=== PATIENT | male | born 1970 | race Caucasian/White ===

== ENCOUNTER 2017-09-28 11:43 | Emergency (ER) | payer OTHER ==
--- NOTE | 2017-09-28 11:46 | PDOC ---
History of Present Illness - General Stated Complaint: BLOOD PRESSURE PROBLEM Time Seen by Provider: 09/28/17 11:45 - History of Present Illness Initial Comments: 09/28/17 11:47 Mr. Barr is a 47 yo male w/ pmh of hypertension, aortic dissection (2008), aortic aneurism x2, and former cocaine abuse who presents c/o a 1 hour history of "sharp" pain in his chest. He denies it is tearing in nature but says that it feels similar to when his aortic aneurism was leaking in the past. Mr. Barr says that it was sudden in onset and that he had diffuse sweating and nausea associated with it. The patient denies chest pain, shortness of breath, headache and dizziness. Denies fever, chills, nausea, vomit, diarrhea and constipation. Denies dysuria, frequency, urgency and hematuria. Allergies: NKDA Past History - Past Medical History Allergies/Adverse Reactions: Allergies Allergy/AdvReac Type Severity Reaction Status Date / Time fish derived Allergy Swelling Verified 07/07/16 14:42 Home Medications: Ambulatory Orders Carvedilol 50 mg PO BID 03/07/15 Clonidine HCl 0.3 mg PO TID 03/07/15 Famotidine [Pepcid -] 40 mg PO DAILY 03/07/15 Hydralazine HCl 25 mg PO TID 03/07/15 Lisinopril [Prinivil -] 40 mg PO DAILY 03/07/15 Nifedipine [Nifedical Xl] 30 mg PO HS 03/07/15 Oxycodone HCl/Acetaminophen [Percocet 5-325 mg Tablet] 1 tab PO Q6H PRN #12 tablet MDD 4 tabs 07/07/16 Nifedipine [Nifedipine ER] 60 mg PO DAILY 09/28/17 Spironolactone 40 mg PO DAILY 09/28/17 Cardiac Disorders: Yes (AORTIC ANERYSM) HTN: Yes - Immunization History Immunization Up to Date: Yes - Suicide/Smoking/Psychosocial Hx Smoking History: Never smoked Hx Alcohol Use: Yes (SOCIAL) Drug/Substance Use Hx: No Substance Use Type: Marijuana Review of Systems - Review of Systems Comments:: 09/28/17 14:07 GENERAL/CONSTITUTIONAL: +Diaphoresis earlier this AM. No chills. No weakness. HEAD, EYES, EARS, NOSE AND THROAT: No change in vision. No ear pain or discharge. No sore throat. CARDIOVASCULAR: +Sudden Midline non-tearing but sharp chest pain that does not radiate to his back RESPIRATORY: No cough, wheezing, or hemoptysis. GASTROINTESTINAL: +Nausea this morning, No vomiting, diarrhea or constipation. GENITOURINARY: No dysuria, frequency, or change in urination. MUSCULOSKELETAL: No joint or muscle swelling or pain. No neck or back pain. SKIN: No rash NEUROLOGIC: No headache, vertigo, loss of consciousness, or change in strength/ sensation. ENDOCRINE: No increased thirst. No abnormal weight change HEMATOLOGIC/LYMPHATIC: No anemia, easy bleeding, or history of blood clots. ALLERGIC/IMMUNOLOGIC: No hives or skin allergy. *Physical Exam - Physical Exam Comments: 09/28/17 14:09 GENERAL: Awake, alert, and fully oriented, in no acute distress HEAD: No signs of trauma, normocephalic, atraumatic EYES: PERRLA, EOMI, sclera anicteric, conjunctiva clear ENT: Auricles normal inspection, hearing grossly normal, nares patent, oropharynx clear without exudates. Moist mucosa NECK: Normal ROM, supple, no lymphadenopathy, JVD, or masses LUNGS: No distress, speaks full sentences, clear to auscultation bilaterally HEART: Regular rate and rhythm, normal S1 and S2, no murmurs, rubs or gallops, peripheral pulses normal and equal bilaterally. ABDOMEN: Soft, nontender, normoactive bowel sounds. No guarding, no rebound. No masses EXTREMITIES: Normal inspection, Normal range of motion, no edema. No clubbing or cyanosis. NEUROLOGICAL: Cranial nerves II through XII grossly intact. Normal speech, normal gait, no focal sensorimotor deficits SKIN: Warm, Dry, normal turgor, no rashes or lesions noted. ED Treatment Course - LABORATORY CBC & Chemistry Diagram: 09/28/17 12:10 09/28/17 12:10 Medical Decision Making - Medical Decision Making 09/28/17 12:14 With patient history of dissection and previous kidney function testing in April non-concerning levels, will proceed with CTA without lab results back for kidney function. Discussed risks and benefits with patient and patient agrees and will sign off. 09/28/17 14:13 Patient found to have active dissection. Discussed case with Dr. Cohen ( Cardiothoracic Surgery) of [facility]. Accepted transfer - patient en route via EMS. *DC/Admit/Observation/Transfer Diagnosis at time of Disposition: Aortic dissection Qualifiers: Aortic location: thoracic aorta Qualified Code(s): I71.01 - Dissection of thoracic aorta - Discharge Dispostion Disposition: TRANSFER ACUTE CARE/OTHER HOSP - Referrals Referrals: Fabrice Salas MD [Primary Care Provider] - - Patient Instructions - Post Discharge Activity
--- NOTE | 2017-09-28 11:57 | PDOC ---
Attending Attestation - HPI HPI: 09/28/17 12:38 Pt is a 47 yo M with a PMHx of HTN, Aortic dissection (2009), Aortic aneurysm, cocaine use who presents to the ED with chest pain today. Patient reports sudden onset of sharp, mid sternal chest pain, non radiating, with nausea and diaphoresis. Patient states the pain feels similar to the aneurysm he experienced in the past. Patient immediately called 911 and EMS arrived. Patient woke up in his usual state of health this morning until he experienced these symptoms prior to arrival. PCP: Dr. Salas - Physicial Exam PE: 09/28/17 12:38 Vitals: Triage Vital signs reviewed General Appearance: no acute distress, well nourished well developed, Head: Atraumatic, normocephalic Neck: Supple;No Nuchal rigidity Chest Wall: Nontender Cardiac: Regular rate and rhythm, no murmurs, no rubs, no gallops, Lungs: Clear to auscultation bilateral, good air movement bilaterally, Abdomen: Soft, nondistended, normal bowel sounds, nontender to palpation Extremities: Full range of motion to all extremities, no cyanosis, clubbing, or edema Skin: Warm and dry, no rashes or lesions, no petechiae - Medical Decision Making 09/28/17 12:38 Documentation prepared by Anna Beasley, acting as medical reimbursement manager for Lukas Riddle MD, /DO. 09/28/17 13:07--Call placed to [facility] for vascular surgery. 09/28/17 13:22-- Case discussed with Dr. Rocha discussing imaging reports. 09/28/17 13:24 -- Re-evaluated patient's pain. Currently, patient is in no pain. 09/28/17 13:42-- Case accepted by Dr. Cohen Cardiothoracic surgery. 09/28/17 13:44-- Received call from [facility] transfer center for report. 09/28/17 13:48 -- Patient transported out of ED enroute via EMS to [facility]. <Anna Beasley - Last Filed: 09/28/17 13:48> - Resident Resident Name: Isaac Hardwick - ED Attending Attestation I have performed the following: I have examined & evaluated the patient, The case was reviewed & discussed with the resident, I agree w/resident's findings & plan, Exceptions are as noted - Critical Care Time Total Critical Care Time: 65 Critical Care Statement: The care of this patient involved high complexity decision making to prevent further life threatening deterioration of the patient 's condition and/or to evaluate & treat vital organ system(s) failure or risk of failure. - Medical Decision Making 09/28/17 13:20 47 years old past medical history significant for aortic dissection 2009 status post repair presents with chest pain sharp midsternal nausea diaphoresis. CTA ordered CTA demonstrates a aortic dissection starting at the aortic arch involving the right subclavian continuing through the descending aorta At this time patient is hemodynamically stable he is not hypertensive he is experiencing no pain. His previous surgery was performed at the [facility] by . We'll transfer to [facility] for definitive management. We'll intervention needed at this time 09/28/17 14:[address] Cohen cardiothoracic surgery agrees for transfer to [facility] recommends BP control below 150 systolic Repeat blood pressure now 100 systolic IV fluids running no indication for blood pressure control at this time Patient to be transferred to ICU at [facility] under accepting physician Dr. Martínez for definitive management. <Lukas Riddle - Last Filed: 09/28/17 16:55>
[2017-09-28] MEDS ORDERED: SODIUM CHLORIDE 1,000 ML IV STA ×2 (12:00→13:28)
[2017-09-28 12:08] VITALS: BMI 26.8
[2017-09-28 12:35] LABS: BASOPHIL 0.9 % (0-2.0); EOSINOPHIL 1.5 % (0-4.5); MCHC 32.7 g/dl (32.0-35.9); MEAN CELL VOLUME 88.7 fl (80-96); MEAN PLT VOLUME 9.2 fl (7.5-11.1); NEUTROPHILS 64.3 % (42.8-82.8); PLATELET COUNT 251 K/MM3 (134-434); RDW 13.3 % (11.9-15.9); WHITE BLOOD COUNT 7.8 K/mm3 (4.0-10.0)
[2017-09-28 12:37] LABS: CALCIUM 8.6 mg/dL (8.5-10.1)
[2017-09-28 12:40] LABS: ALBUMIN 3.7 g/dl (3.4-5.0); ANION GAP 6 (8-16); CO2 29 mmol/L (21-32); GLUCOSE,RANDOM 101 mg/dL (74-106); SGPT/ALT 31 U/L (12-78)
[2017-09-28 12:42] LABS: BILIRUBIN,TOTAL 0.5 mg/dL (0.2-1.0); CREATININE 0.8 mg/dL (0.7-1.3); SGOT/AST 15 U/L (15-37); TOT PROT 6.2 g/dl (6.4-8.2)
[2017-09-28 12:45] LABS: ALK PHOS 71 U/L (45-117); CPK 105 IU/L (39-308); TROPONIN I < 0.02 ng/ml (0.00-0.05)
[2017-09-28] MEDS ORDERED: LABETALOL HCL 5 MG/1 ML (200MG/40ML VIAL) IVPB ONE ×2 (13:39→13:40)
[2017-09-28 13:45] VITALS: BP 96/61; PULSE 62; TEMP 98.1
--- NOTE | 2017-09-29 08:44 | EKG ---
Test Reason : Blood Pressure : / mmHG Vent. Rate : 056 BPM Atrial Rate : 056 BPM P-R Int : 168 ms QRS Dur : 086 ms QT Int : 456 ms P-R-T Axes : 037 031 034 degrees QTc Int : 440 ms SINUS BRADYCARDIA POSSIBLE LEFT ATRIAL ENLARGEMENT BORDERLINE ECG WHEN COMPARED WITH ECG OF 07-MAR-2015 22:46, NO SIGNIFICANT CHANGE WAS FOUND Confirmed by JULIA ALAS MD ([id number]) on 09/29/2017 8:44:20 AM Referred By: Confirmed By:JULIA ALAS MD
== END 2017-09-28 13:45 | disposition short-term general hospital (02) ==
LOC: JER 11:43
DX: I71.01 Dissection of thoracic aorta (principal); Z86.79 Personal history of other diseases of the circulatory system
CPT/HCPCS: 36415; 71275-TC; 74170-TC; 80053; 82550; 84484; 85025; 93005; 93010; 99283-25

== ENCOUNTER 2019-05-28 19:05 | Emergency (ER) | payer OTHER ==
[2019-05-28 19:11] VITALS: TEMP 97.6; BMI 26.4
[2019-05-28] MEDS ORDERED: morphine CARPU-JECT 4 MG/1 ML DISP.SYRIN IVPUSH ONE ×3 (19:20→21:26)
[2019-05-28] MEDS ORDERED: METOPROLOL TARTRATE 5 MG/5 ML VIAL ONE (19:27)
[2019-05-28] MEDS ORDERED: morphine SULFATE 4 MG/ML VIAL ONE ×3 (19:34→21:31)
--- NOTE | 2019-05-28 19:37 | PDOC ---
Documentation entered by Emeli Joseph SCRIBE, acting as scribe for Aurelio Cantu MD. Aurelio Cantu MD: This documentation has been prepared by the maheshibe, Emeli Joseph SCRIBE, under my direction and personally reviewed by me in its entirety. I confirm that the documentation accurately reflects all work, treatment, procedures, and medical decision making performed by me. Attending Attestation - Resident Resident Name: Jenny Kumar - ED Attending Attestation I have performed the following: I have examined & evaluated the patient, The case was reviewed & discussed with the resident, I agree w/resident's findings & plan, Exceptions are as noted - HPI HPI: 05/28/19 19:26 The patient is a 49-year-old male, with a past medical history of HTN, aortic dissection (2008), aortic aneurysm x2, and former cocaine abuse, who was sent to the ED by his [employer] Specialist (Dr. Bateman) for chest pain r/o aortic dissection. - Physicial Exam PE: 05/28/19 19:26 GENERAL: visible distress, AOx3 HEENT: Normocephalic, atraumatic. PERRL, EOM intact. CARDIOVASCULAR: HR 50s PULMONARY: Clear to auscultation bilaterally. ABDOMEN: Soft, non-distended, non-tender. EXTREMITIES: Normal ROM in all four extremities. No gross deformities. SKIN: Warm, dry. No rash NEUROLOGICAL: No focal neurological deficits. - Medical Decision Making 05/28/19 20:37 Sharp, tearing, central chest pain similar to prior dissection Extremely concerning for dissection analgesia, bp control CTA CAP SBP>200 on initial exam, esmolo drip started goals of HR 50-60, SBP 100-120 Transfer to [facility] initiated, spoke with Dr. Peralta, patient's CT surgeon, who accepted the patient
[2019-05-28] MEDS ORDERED: ESMOLOL 2500 MG/250 ML 2,500,000 MCG/250 ML INFUS.BAG IVPB ONE ×2 (19:52→21:31)
--- NOTE | 2019-05-28 19:52 | PDOC ---
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 5mg Metoprolol given by EMS. Pt states he was sitting playing video games when the pain suddenly started, sharp, substernal then radiated to abdomen, constant but varies in intensity. Pt tried Hydralazine without improvement. Endorses SOB. Denies MARSHALL, dizziness, numbness/ tingling, weakness, back pain, neck pain. LPO 0800. Pt endorses similar sx in the past ever since his surgery in 2008, but states it usually resolves at rest , but this time it just kept getting worse. Past History - Past Medical History Allergies/Adverse Reactions: Allergies Allergy/AdvReac Type Severity Reaction Status Date / Time fish derived Allergy Swelling Verified 05/28/19 19:07 Home Medications: Ambulatory Orders Carvedilol 50 mg PO BID 03/07/15 Clonidine HCl 0.3 mg PO TID 03/07/15 Famotidine [Pepcid -] 40 mg PO DAILY 03/07/15 Hydralazine HCl 25 mg PO TID 03/07/15 Lisinopril [Prinivil -] 40 mg PO DAILY 03/07/15 Nifedipine [Nifedical Xl] 30 mg PO HS 03/07/15 Oxycodone HCl/Acetaminophen [Percocet 5-325 mg Tablet] 1 tab PO Q6H PRN #12 tablet MDD 4 tabs 07/07/16 Nifedipine [Nifedipine ER] 60 mg PO DAILY 09/28/17 Spironolactone 40 mg PO DAILY 09/28/17 Cardiac Disorders: Yes (AORTIC ANERYSM) COPD: No HTN: Yes - Surgical History Cardiac Surgery: Yes (AAA repair) - Immunization History Immunization Up to Date: Yes - Suicide/Smoking/Psychosocial Hx Smoking History: Former smoker Have you smoked in the past 12 months: No Information on smoking cessation initiated: No Hx Alcohol Use: No Drug/Substance Use Hx: Yes Substance Use Type: Marijuana Review of Systems - Review of Systems Comments:: 06/01/19 00:18 Constitutional: Negative for chills, fever, fatigue. HENT: Negative for sore throat, rhinorrhea, congestion. Eyes: Negative for visual disturbance. Respiratory: Positive for shortness of breath. Negative for cough, and wheezing. Cardiovascular: Positive for chest pain. Negative for palpitations, and leg swelling. Gastrointestinal: Positive for abdominal pain. Negative for blood in stool, constipation, diarrhea, nausea, and vomiting. Genitourinary: Negative for dysuria, flank pain, and hematuria. Musculoskeletal: Negative for myalgias, back pain, and neck pain. Skin: Negative for rash. Neurological: Negative for light-headedness, dizziness, syncope, weakness, numbness and headaches. Psychiatric/Behavioral: Negative for behavioral problems and confusion. *Physical Exam - Vital Signs Last Vital Signs Temp Pulse Resp BP Pulse Ox 97.6 F 56 L 22 H 166/96 98 05/28/19 19:07 05/28/19 19:07 05/28/19 19:07 05/28/19 19:07 05/28/19 19:07 - Physical Exam Comments: Gen: Alert, screaming in pain, in acute distress, clutching chest HEENT: PERRL, EOMI, MMM, NCAT. No conjunctival pallor. Sclera are non-icteric. CV: Regular rate and rhythm. No murmurs, rubs, or gallops. PULM: No resp distress. CTAB, no wheezes, rales, or rhonchi. ABD: diffuse TTP, soft, ND, no rebound tenderness or guarding, no CVA tenderness. BACK: No TTP of c/t/l-spine. No step-offs or deformities. MSK: No bony deformities. 2+ pulses in all extremities. NEURO: AAOx3. PERRL. No gross CN deficits. Strength and sensation grossly intact throughout. EXTREMITIES: No cyanosis. No clubbing. No edema. No calf tenderness. PSYCH: Normal mood and thought pattern. SKIN: Warm and dry. Normal capillary refill. No rashes. No jaundice. Heart Score/ECG Review - ECG Impressions Comment:: 05/28/19 20:37 EKG at 1954: 55bpm, sinus bradycardia, TWI V2/V3/III, no significant changes from 09/28/17 ED Treatment Course - LABORATORY CBC & Chemistry Diagram: 05/28/19 19:46 05/28/19 19:46 - RADIOLOGY Radiology Studies Ordered: Category Date Time Status ABDOMEN/PELVIS CTA W/WO CONTR [CT] Stat CT Scan 05/28/19 19:17 Ordered CHEST CTA [CT] Stat CT Scan 05/28/19 19:17 Ordered - Medications Given in the ED: ED Medications Discontinued Medications Generic Name Dose Route Start Last Admin Trade Name Shayla PRN Reason Stop Dose Admin Morphine Sulfate 4 mg 05/28/19 19:20 05/28/19 19:45 Morphine Injection - IVPUSH 05/28/19 19:21 4 mg ONCE ONE Administration Medical Decision Making - Medical Decision Making 05/28/19 20:37 49yo M hx HTN, aortic dissection (2008), aortic aneurysm, preDM, anemia, R inguinal hernia, and former cocaine abuse presents from home 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 5mg Metoprolol given by EMS. BP 240/120, HR 50s and jumps up to 300s every few minutes with loss of pulse but no LOC, in severe pain. Pads placed. Very high concern for dissection - immediate CTA - discussed risks and benefits of getting CTA prior to labs with pt and obtained consent. 4mg morphine given en route to CTA. When returned from CTA, started Esmolol drip for goals of HR 50-60 and SBP 100-120. Reassessed BP and HR every 5 minutes and titrated up to max 200 mcg/kg/min at 2030. 2034: BP 135/99, HR 60s. 2042: 139/85, 50s 2056: 121/83, 60s Dissection of highest concern, but also consider and assess for ACS/NH. Obtained labs: EKG, CBC, CMP, cardiac profile, coags. 8: ordered second 4mg morphine for continued pain 2125: ordered third 4mg morphine for return of pain 05/28/19 20:54 Pt feels better. Sitting up, looks much more comfortable. Denies CP, abdominal pain, dizziness, any complaints. HR 50s-60s, BP 130s/80s. Transfer paperwork filled out. Pending transfer. Dr Cantu spoke with Dr Peralta, pt's CT surgeon, who accepted the pt for transfer to [facility]. EKG at 1954: 55bpm, sinus bradycardia, TWI V2/V3/III, no significant changes from 09/28/17 05/28/19 20:57 Labs reviewed. WBC 11.2. PTT 47.8. CT: In comparison to a 2017 CT exam note is made of apparent interval decreased flow within the false lumen of a chronic aortic dissection which as on the prior study extends from the level of the proximal aortic arch through the infrarenal abdominal aorta. The remainder of the exam demonstrates no definite interval change as discussed above. A 1.7 cm enhancing right hepatic lobe focus is seen posteriorly without gross interval change. Correlation with sonography or contrast-enhanced MRI is suggested.. Right inguinal hernia containing fat and a small portion of the urinary bladder. Small left inguinal hernia containing fat only. 05/28/19 21:40 Chest pain returning. BP 129/82. 4 morphine and another bag of Esmolol for transport team in case. Signed out to transport team. Pt taken. *DC/Admit/Observation/Transfer Diagnosis at time of Disposition: Aortic dissection - Discharge Dispostion Disposition: TRANSFER ACUTE CARE/OTHER HOSP Condition at time of disposition: Improved Decision to Admit order: No - Referrals Referrals: Fabrice Salas MD [Primary Care Provider] - - Patient Instructions - Post Discharge Activity - Transfer to Acute Care Facility Receiving Facility: [facility]. Accepting Physician:: Dr. Cohen
[2019-05-28] MEDS: ESMOLOL 2500 MG/250 ML 2,500,000 MCG/250 ML INFUS.BAG IVPB SCH ×3 (20:00→20:10)
[2019-05-28] MEDS ORDERED: ESMOLOL 2500 MG/250 ML 2,500,000 MCG/250 ML INFUS.BAG IVPB SCH ×2 (20:00→21:30)
[2019-05-28 20:03] LABS: BASO % 0.8 % (0-2.0); EOS % 0.5 % (0-4.5); HEMATOCRIT 44.5 % (35.4-49); HEMOGLOBIN 14.8 GM/dL (11.7-16.9); LYMPH % 34.4 % (8-40); MCH 29.1 pg (25.7-33.7); MCHC 33.2 g/dl (32.0-35.9); MEAN CELL VOLUME 87.5 fl (80-96); MEAN PLT VOLUME 8.6 fl (7.5-11.1); MONO % 7.8 % (3.8-10.2); NEUT % 56.5 % (42.8-82.8); PLATELET COUNT 296 K/MM3 (134-434); RBC 5.08 M/mm3 (4.00-5.60); RDW 14.9 % (11.9-15.9); WHITE BLOOD COUNT 11.2 K/mm3 (4.0-10.0)
[2019-05-28 20:28] LABS: INR 0.92 (0.83-1.09); PROTHROMBIN TIME (PATIENT) 10.9 SEC (9.7-13.0)
[2019-05-28 21:31] LABS: ALBUMIN 3.9 g/dl (3.4-5.0); ALK PHOS 84 U/L (45-117); ANION GAP 7 MMOL/L (8-16); BILIRUBIN,TOTAL 0.3 mg/dL (0.2-1); BLOOD UREA NITROGEN 9.3 mg/dL (7-18); CALCIUM 9.3 mg/dL (8.5-10.1); CHLORIDE 104 mmol/L (98-107); CO2 28 mmol/L (21-32); CREATININE 0.9 mg/dL (0.55-1.3); GLUCOSE,RANDOM 96 mg/dL (74-106); POTASSIUM 4.2 mmol/L (3.5-5.1); SGOT/AST 25 U/L (15-37); SGPT/ALT 40 U/L (13-61); SODIUM 139 mmol/L (136-145); TOT PROT 6.6 g/dl (6.4-8.2)
[2019-05-28 21:51] VITALS: BP 129/84; PULSE 56
--- NOTE | 2019-05-29 14:15 | EKG ---
Test Reason : Blood Pressure : / mmHG Vent. Rate : 055 BPM Atrial Rate : 055 BPM P-R Int : 160 ms QRS Dur : 076 ms QT Int : 450 ms P-R-T Axes : 044 033 035 degrees QTc Int : 430 ms SINUS BRADYCARDIA POSSIBLE LEFT ATRIAL ENLARGEMENT NONSPECIFIC T WAVE ABNORMALITY ABNORMAL ECG WHEN COMPARED WITH ECG OF 28-SEP-2017 11:56, NO SIGNIFICANT CHANGE WAS FOUND Confirmed by REHAN GALEAS MD ([id number]) on 05/29/2019 2:14:56 PM Referred By: Confirmed By:REHAN GALEAS MD
== END 2019-05-28 21:53 | disposition short-term general hospital (02) ==
LOC: JER 19:05
PROC: 3E033NZ Introduction of Analgesics, Hypnotics, Sedatives into Peripheral Vein, Percutaneous Approach (ICD-10-PCS; principal; 2019-05-28)
PROC: 3E033GC Introduction of Other Therapeutic Substance into Peripheral Vein, Percutaneous Approach (ICD-10-PCS; 2019-05-28)
PROC: 3E033NZ Introduction of Analgesics, Hypnotics, Sedatives into Peripheral Vein, Percutaneous Approach (ICD-10-PCS; 2019-05-28)
PROC: 3E033NZ Introduction of Analgesics, Hypnotics, Sedatives into Peripheral Vein, Percutaneous Approach (ICD-10-PCS; 2019-05-28)
DX: I71.00 Dissection of unspecified site of aorta (principal); Z86.79 Personal history of other diseases of the circulatory system
CPT/HCPCS: 36415; 71275-TC; 74174-TC; 80053; 82550; 84484; 85025; 85610; 85730; 86850; 86900; 86901; 93005; 93010; 99285-25

== ENCOUNTER 2019-10-09 16:31 | Inpatient (IN) | payer OTHER ==
[2019-10-09 19:20] VITALS: BMI 27.5
--- NOTE | 2019-10-09 21:24 | HP ---
COWS - Scale Resting Pulse: 1= [place] 81-100 Sweatin=Flushed/Facial Moisture Restless Observation: 3= Extraneous Movement Pupil Size: 2= Moderately Dilated (Pupils = 3 mm) Bone or Joint Aches: 1= Mild Discomfort Runny Nose/ Eye Tearin= None GI Upset > 30mins: 0= None Tremor Observation: 2= Slight Tremor Visible Yawning Observation: 1= 1-2x During Session Anxiety or Irritability: 2=Irritable/Anxious Goose Flesh Skin: 0=Smooth Skin COWS Score: 14 CIWA Score - Admission Criteria OASAS Guidelines: Admission for Medically Managed Detox: Requires at least one of the followin. CIWA greater than 12 2. Seizures within the past 24 hours 3. Delirium tremens within the past 24 hours 4. Hallucinations within the past 24 hours 5. Acute intervention needed for co occurring medical disorder 6. Acute intervention needed for co occurring psychiatric disorder 7. Severe withdrawal that cannot be handled at a lower level of care (continued vomiting, continued diarrhea, abnormal vital signs) requiring intravenous medication and/or fluids 8. Admitting History and Physical - Smoking History Smoking history: Former smoker Have you smoked in the past 12 months: No - Alcohol/Substance Use Hx Alcohol Use: No Admission ROS BHS - HPI Chief Complaint: "Here to detox from percocets and weed" Allergies/Adverse Reactions: Allergies Allergy/AdvReac Type Severity Reaction Status Date / Time fish derived Allergy Swelling Verified 10/09/19 19:09 History of Present Illness: States here for percocet detox. Last took percocet about 1400 hrs today. JENNIFER: 0.0 UTox: + THC/OXY Percocet use since age 42. [facility] has been taking more than prescribed x 5 years. States now taking 10-10 mg tables daily. Patient states orthopedic provider is the one ordering oxycodone and provider is aware of patient seeking detox. Patient states Provider will find alternative ways to control pain. Denies hx seizures, blackouts or overdoses. Marijuana use since age 13. Smokes 3-4 blunts/day. Hx: Cocaine use. - stopped in 2008 after first heart attack. Stopped alcohol use 3-4 yrs ago. Stopped nicotine use. PMHx: Myocardial infarct; aortic aneurism repair; Last heart attack 06/2019; Thinks that w/drawal triggered the heart attack; spinal stenosis, HTN; MHHx: Depression. Anxiety. Not on MH meds. Does not see a Psych. Denies thoughts of harming self or others. SHx: Domiciled. Unemployed. (SSD); Denies legal issues. Patient Name: Vivek Barr Date: 1970 Address: [address] [place] [address] [place] [address] Sex: Male Rx Written Rx Dispensed Drug Quantity Days Supply Prescriber Name 09/25/2019 09/25/2019 oxycodone-acetaminophen 5-325 mg tablet 20 20 DoSruthi meyers NP 08/05/2019 08/05/2019 oxycodone-acetaminophen 5-325 mg tablet 20 20 DebieAugustine mota MD 07/03/2019 07/03/2019 oxycodone-acetaminophen 5-325 mg tablet 20 20 DoblSruthi leonard NP 06/04/2019 06/05/2019 oxycodone-acetaminophen 5-325 mg tablet 24 6 iY Solitario 04/22/2019 04/22/2019 oxycodone-acetaminophen 5-325 mg tablet 20 20 DebiecAugustine MD 03/06/2019 03/07/2019 oxycodone-acetaminophen 5-325 mg tablet 20 20 DebiecAugustine MD 01/30/2019 01/30/2019 oxycodone-acetaminophen 5-325 mg tablet 20 30 DebiecAugustine MD 12/12/2018 12/29/2018 oxycodone-acetaminophen 5-325 mg tablet 20 20 DebAugustine winslow MD 11/28/2018 11/29/2018 oxycodone-acetaminophen 5-325 mg tablet 20 20 DoblinSruthi NP 10/24/2018 10/24/2018 oxycodone-acetaminophen 5-325 mg tablet 20 20 DebAugustine winslow MD Exam Limitations: No Limitations - Ebola screening Have you traveled outside of the country in the last 21 days: No (N) Have you had contact with anyone from an Ebola affected area: No Have you been sick,other than usual withdrawal symptoms: Yes (Extensive cardiac hx. ) Do you have a fever: No - Review of Systems Constitutional: Chills, Diaphoresis, Changes in sleep (Difficulty staying asleep.) EENT: reports: Blurred Vision Respiratory: reports: SOB with Exertion, SOB at Rest (Intermittent SOB @ rest. Thinks may be r/t withdrawal.) Cardiac: reports: Irregular Heart Rate, Palpitations, Syncope (r/t heat; straining) GI: reports: No Symptoms Reported : reports: Frequency (2-4 x/night) Musculoskeletal: reports: Back Pain (Lower back sharp pain "6" : Pain increases w/ sitting/standing too long. Improves w/ laying down or sitting) Integumentary: reports: No Symptoms Reported Neuro: reports: Tremors Endocrine: reports: Increased Thirst Hematology: reports: Anemia (Low iron) Psychiatric: reports: Orientated x3 (Unsure of ecxact date.), Agitated, Anxious , Depressed (Denies thoughts of harming self or others.) Patient History - Patient Medical History Hx Chronic Obstructive Pulmonary Disease (COPD): No Hx Cardiac Disorders: Yes (AORTIC ANERYSM) Hx Hypertension: Yes - Patient Surgical History Hx Cardiac Surgery: Yes (AAA repair) - PPD History Previous Implant?: Yes Documented Results: Negative w/o proof Implanted On Prior [facility] Admission?: No PPD to be Administered?: Yes - Smoking Cessation Smoking history: Former smoker Have you smoked in the past 12 months: No Hx Chewing Tobacco Use: No Initiated information on smoking cessation: No - Substance & Tx. History Hx Alcohol Use: Yes Hx Substance Use: Yes Substance Use Type: Alcohol, Cocaine, Marijuana Hx Substance Use Treatment: Yes (detox, rehab) - Substances abused Other Other (specify): Substance route: Oral Frequency: Daily Amount used: 10-12 TABS Age of first use: 42 Date of last use: 10/09/19 Marijuana/Hashish Substance route: Smoking Frequency: Daily Amount used: $25 Age of first use: 13 Date of last use: 10/09/19 Admission Physical Exam BHS - Vital Signs Vital Signs: Vital Signs - 24 hr 10/09/19 19:08 Temperature 98.4 F Pulse Rate 83 Respiratory 16 Rate Blood Pressure 116/71 - Physical General Appearance: Yes: Nourished, Mild Distress, Tremorous, Sweating ( Increased facial moisture), Anxious HEENTM: Yes: EOMI, Hearing grossly Normal, Normocephalic, Normal Voice, LIANA ( Pupils = 3 mm), Other (Tonsilar enlargement - stage 2: no erythema or exudate) Respiratory: Yes: Lungs Clear (Pulse Ox = 98 %), Normal Breath Sounds, No Respiratory Distress Neck: Yes: No masses,lesions,Nodules, Supple Breast: Yes: Breast Exam Deferred Cardiology: Yes: Regular Rhythm, Regular Rate (92), S1, S2, Murmur Abdominal: Yes: Normal Bowel Sounds, Non Tender, Soft Genitourinary: Yes: Within Normal Limits Back: Yes: Normal Inspection Musculoskeletal: Yes: full range of Motion, Gait Steady Extremities: Yes: Normal Capillary Refill (Peripheral pulses +; No edema) Neurological: Yes: 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 II-XII NML intact, Fully Oriented, Alert, Motor Strength 5/5, Normal Response Integumentary: Yes: Normal Color, Warm, Moist (Increased facial moisture), Other (dry, flaky skin on feet, thickened) Lymphatic: Yes: Within Normal Limits - Diagnostic (1) Opioid dependence with withdrawal Current Visit: Yes Status: Acute (2) Hx of myocardial infarction Current Visit: Yes Status: Chronic (3) Hx of aortic aneurysm repair Current Visit: Yes Status: Chronic (4) Cannabis dependence, uncomplicated Current Visit: Yes Status: Chronic (5) Essential (primary) hypertension Current Visit: Yes Status: Chronic (6) Tinea pedis Current Visit: Yes Status: Chronic Qualifiers: Laterality: bilateral Qualified Code(s): B35.3 - Tinea pedis (7) Murmur, cardiac Current Visit: Yes Status: Chronic Cleared for Admission S - Detox or Rehab [facility] Level of Care: Medically Managed Detox Regimen/Protocol: Methadone Claeared for Rehab Admission: No Breathalyzer - Breathalyzer Breathalyzer: 0 Urine Drug Screen - Test Device Lot number: [id number] Expiration date: 05/26/21 - Control Is test valid?: Yes - Results Drug screen NEGATIVE: No Urine drug screen results: THC-Marijuana, OXY-Oxycodone Inpatient Rehab Admission - Rehab Decision to Admit Inpatient rehab admission?: No
[2019-10-09] MEDS ORDERED: CARVEDILOL 25 MG TABLET (FP) PO SCH (22:00)
[2019-10-09] MEDS ORDERED: MENTHOL/PHENOL 1 EACH UD MM PRN (22:08)
[2019-10-09] MEDS ORDERED: METHADONE HCL 10 MG TABLET (FOR DETOX USE ONLY) PO ONE (22:08)
[2019-10-09] MEDS ORDERED: ACETAMINOPHEN 325 MG TABLET (FP) PO PRN ×2 (22:08)
[2019-10-09] MEDS ORDERED: IBUPROFEN 600 MG TABLET (FP) PO PRN (22:08)
[2019-10-09] MEDS ORDERED: BISMUTH SUBSALICYLATE 524 MG/30 ML UD PO PRN (22:08)
[2019-10-09] MEDS ORDERED: MAG HYDROX/AL HYDROX/SIMETH 30 ML UNIT-DOSE CUP PO PRN (22:08)
[2019-10-09] MEDS ORDERED: MELATONIN 5 MG TABLETS PO PRN (22:08)
[2019-10-09] MEDS ORDERED: MAGNESIUM CITRATE 300 ML BOTTLE PO PRN (22:08)
[2019-10-09] MEDS ORDERED: MAGNESIUM HYDROX 2400MG/30ML ORAL SUSPENSION 30 ML CUP PO PRN (22:08)
[2019-10-09] MEDS: FAMOTIDINE 20 MG TABLET PO SCH (23:41)
[2019-10-09] MEDS: NIFEdipine E.R. 30 MG TABLET (FP) PO SCH (23:41)
[2019-10-09] MEDS: hydrALAZINE HCL 50 MG TABLET (FP) PO SCH (23:56)
[2019-10-09] MEDS: CARVEDILOL 12.5 MG TABLET (FP) PO SCH (23:56)
[2019-10-10] MEDS: clonazePAM 0.5 MG TABLET PO PRN ×4 (01:14→22:38)
[2019-10-10] MEDS: hydrALAZINE HCL 50 MG TABLET (FP) PO SCH ×3 (07:21→22:35)
[2019-10-10] MEDS ORDERED: METHADONE HCL 10 MG TABLET (FOR DETOX USE ONLY) ONE (09:50)
[2019-10-10] MEDS ORDERED: METHADONE HCL 5 MG TABLET (FOR DETOX USE ONLY) ONE (09:50)
[2019-10-10] MEDS: FAMOTIDINE 20 MG TABLET PO SCH ×2 (09:51→22:34)
[2019-10-10] MEDS: CARVEDILOL 12.5 MG TABLET (FP) PO SCH (09:51)
[2019-10-10] MEDS: METHOCARBAMOL 500 MG TABLET PO PRN ×2 (09:51→17:59)
[2019-10-10] MEDS: PRENATAL VITAMINS W/ FOLIC ACID TABLET (FP) PO SCH (09:51)
[2019-10-10] MEDS: TOLNAFTATE 1% CREAM 15 GM TUBE TP SCH ×2 (09:53→22:37)
[2019-10-10] MEDS ORDERED: METHADONE (DETOX) 20 MG, METHADONE (DETOX) 5 MG PO ONE (10:00)
--- NOTE | 2019-10-10 10:23 | EKG ---
Test Reason : Blood Pressure : / mmHG Vent. Rate : 076 BPM Atrial Rate : 076 BPM P-R Int : 154 ms QRS Dur : 086 ms QT Int : 398 ms P-R-T Axes : 035 020 059 degrees QTc Int : 447 ms NORMAL SINUS RHYTHM POSSIBLE LEFT ATRIAL ENLARGEMENT BORDERLINE ECG WHEN COMPARED WITH ECG OF 28-MAY-2019 19:08, T WAVE INVERSION NO LONGER EVIDENT IN ANTERIOR LEADS NONSPECIFIC T WAVE ABNORMALITY NOW EVIDENT IN LATERAL LEADS Confirmed by LENIN STERN, CECILIO ([id number]) on 10/10/2019 10:22:47 AM Referred By: Confirmed By:CECILIO PHELPS MD
[2019-10-10 10:36] LABS: HEMATOCRIT 37.1 % (35.4-49); HEMOGLOBIN 12.2 GM/dL (11.7-16.9); MCH 29.1 pg (25.7-33.7); MEAN CELL VOLUME 88.1 fl (80-96); MEAN PLT VOLUME 8.9 fl (7.5-11.1); PLATELET COUNT 293 K/MM3 (134-434); RBC 4.21 M/mm3 (4.00-5.60); RDW 14.1 % (11.9-15.9); WHITE BLOOD COUNT 12.7 K/mm3 (4.0-10.0)
[2019-10-10 10:40] LABS: ALBUMIN 4.1 g/dl (3.4-5.0); BILIRUBIN,TOTAL 0.7 mg/dL (0.2-1); BLOOD UREA NITROGEN 19.6 mg/dL (7-18); CALCIUM 9.1 mg/dL (8.5-10.1); CREATININE 0.7 mg/dL (0.55-1.3); POTASSIUM 3.9 mmol/L (3.5-5.1); TOT PROT 6.6 g/dl (6.4-8.2)
--- NOTE | 2019-10-10 12:06 | PN ---
BHS COWS - Scale Resting Pulse: 1= [place] 81-100 Sweatin= Beads of Sweat on Face Restless Observation: 1= Difficult to Sit Still Pupil Size: 0= Normal to Room Light Bone or Joint Aches: 2= Severe Diffuse Aches Runny Nose/ Eye Tearin= None GI Upset > 30mins: 0= None Tremor Observation of Outstretched Hands: 0= None Yawning Observation: 1= 1-2x During Session Anxiety or Irritability: 2=Irritable/Anxious Goose Flesh Skin: 0=Smooth Skin COWS Score: 10 BHS Progress Note (SOAP) Subjective: c/o muscle aches, sweats, chills, and anxiety. Objective: 10/10/19 12:06 Vital Signs 10/10/19 10/10/19 06:09 09:14 Temperature 97.9 F 98.6 F Pulse Rate 80 81 Respiratory 18 18 Rate Blood Pressure 108/57 L 139/79 Laboratory Last Values WBC 12.7 K/mm3 (4.0-10.0) H 10/10/19 08:10 RBC 4.21 M/mm3 (4.00-5.60) 10/10/19 08:10 Hgb 12.2 GM/dL (11.7-16.9) 10/10/19 08:10 Hct 37.1 % (35.4-49) D 10/10/19 08:10 MCV 88.1 fl (80-96) 10/10/19 08:10 MCH 29.1 pg (25.7-33.7) 10/10/19 08:10 MCHC 33.0 g/dl (32.0-35.9) 10/10/19 08:10 RDW 14.1 % (11.9-15.9) 10/10/19 08:10 Plt Count 293 K/MM3 (134-434) 10/10/19 08:10 MPV 8.9 fl (7.5-11.1) 10/10/19 08:10 Sodium 138 mmol/L (136-145) 10/10/19 08:10 Potassium 3.9 mmol/L (3.5-5.1) 10/10/19 08:10 Chloride 105 mmol/L (98-107) 10/10/19 08:10 Carbon Dioxide 26 mmol/L (21-32) 10/10/19 08:10 Anion Gap 8 MMOL/L (8-16) 10/10/19 08:10 BUN 19.6 mg/dL (7-18) H 10/10/19 08:10 Creatinine 0.7 mg/dL (0.55-1.3) 10/10/19 08:10 Est GFR (CKD-EPI)AfAm 130.25 10/10/19 08:10 Est GFR (CKD-EPI)NonAf 112.38 10/10/19 08:10 Random Glucose 106 mg/dL (74-106) 10/10/19 08:10 Calcium 9.1 mg/dL (8.5-10.1) 10/10/19 08:10 Total Bilirubin 0.7 mg/dL (0.2-1) 10/10/19 08:10 AST 13 U/L (15-37) L 10/10/19 08:10 ALT 29 U/L (13-61) 10/10/19 08:10 Alkaline Phosphatase 67 U/L (45-117) 10/10/19 08:10 Total Protein 6.6 g/dl (6.4-8.2) 10/10/19 08:10 Albumin 4.1 g/dl (3.4-5.0) 10/10/19 08:10 Labs noted. Assessment: 10/10/19 12:06 AOX3, in no acute respiratory distress. Full ROM, ambulating in the unit. Withdrawal symptoms. Plan: continue detox.
[2019-10-10] MEDS: cloNIDine HCL 0.1 MG TABLET PO SCH ×2 (14:26→22:35)
[2019-10-10] MEDS: LISINOPRIL PO SCH (14:27)
[2019-10-10] MEDS: NIFEDIPINE PO SCH (14:27)
[2019-10-10] MEDS: SPIRONOLACTONE 25 MG TABLET (FP) PO SCH (14:27)
--- NOTE | 2019-10-10 16:52 | CONSULT ---
[facility] Psychiatric Consult - Data Date of interview: 10/10/19 Admission source: [facility] Identifying data: First admission to [facility] for this 49 y/o male self-referred for detoxification. ADRY issues : opiates, cannabis, cocaine. Interviewed at [address] [place] [address]. Patient is single, a father of five, domiciled, unemployed and supported on SSI benefits. Substance Abuse History: Discussed with the patient. Details in current [facility] report as follows : Smoking history: Former smoker. Have you smoked in the past 12 months: No. Hx Chewing Tobacco Use: No. Initiated information on smoking cessation: No. - Substance & Tx. History. Hx Alcohol Use: Yes. Hx Substance Use: Yes. Substance Use Type: Alcohol, Cocaine, Marijuana. Hx Substance Use Treatment: Yes (detox, rehab). - Substances abused. Other. Other (specify): . Substance route: Oral. Frequency: Daily. Amount used : 10-12 TABS. Age of first use: 42. Date of last use: 10/09/19. Marijuana/ Hashish. Substance route: Smoking. Frequency: Daily. Amount used: $25. Age of first use: 13. Date of last use: 10/09/19 Medical History: Medical profile is remarkable for hypertension, hyperthyroidism , antecedent of cardiovascular surgery (aneurysm of ascending aorta) and spinal stenosis. Psychiatric History: Patient denies history of psychiatric hospitalizations or OPD care. Mr Barr indicates a history of severe stressors ( of one son to homicide last year, estrangement from relatives, serious medical illnesses, incarcerations, financial difficulties) which had generated anxiety and mood dysregulation. 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 Patient denies history of suicide attempts. Physical/Sexual Abuse/Trauma History: Stressors are discussed in Psychiatric History section (see above). Additional Comment: Urine drug screen results: THC-Marijuana, OXY-Oxycodone. Noted. Mental Status Exam - Mental Status Exam Alert and Oriented to: Time, Place, Person Cognitive Function: Good Patient Appearance: Disheveled (tattoos on both shoulders, arms, forearms, chest ) Mood: Withdrawn, Anxious (dysphoric) Affect: Mood Congruent, Constricted Patient Behavior: Inappropriate (as evidenced by ambulating on the unit wearing a tank top T-shirt), Fatigued, Cooperative Speech Pattern: Clear, Appropriate Voice Loudness: Normal Thought Process: Intact, Goal Oriented Thought Disorder: Not Present Hallucinations: Denies Suicidal Ideation: Denies Homicidal Ideation: Denies Insight/Judgement: Poor Sleep: Well Appetite: Good Muscle strength/Tone: Normal (no complaint offered) Gait/Station: Normal Psychiatric Findings - Problem List ([place] 1, 2,3) (1) Opioid dependence with withdrawal Current Visit: Yes Status: Acute (2) Cannabis dependence, uncomplicated Current Visit: Yes Status: Chronic (3) Substance induced mood disorder Current Visit: Yes Status: Chronic (4) History of depression Current Visit: Yes Status: Chronic Comment: As per self-report. - Initial Treatment Plan Initial Treatment Plan: Psychoeducation. Sleep hygiene. Detoxification. NA meetings. MAT services are discussed with the patient. Rehabilitation recommended (patient agrees to enter rehab after completion of detox). Observation.
--- NOTE | 2019-10-10 20:53 | PN ---
BHS Progress Note Note: Patient c/o poor appetite and unable to eat most meals being served. Requesting Ensure. BMI = 27.5, but patient is more muscular. Denies nausea or vomiting. Plan: Ensure 120 ml PO Daily.
[2019-10-10] MEDS: THIAMINE HCL 100 MG TABLET (FP) PO SCH (22:34)
[2019-10-10] MEDS: NIFEdipine E.R. 30 MG TABLET (FP) PO SCH (22:34)
[2019-10-10] MEDS: CARVEDILOL 25 MG TABLET (FP) PO SCH (22:35)
[2019-10-11] MEDS: hydrALAZINE HCL 50 MG TABLET (FP) PO SCH ×3 (06:02→22:34)
[2019-10-11] MEDS: cloNIDine HCL 0.1 MG TABLET PO SCH ×3 (06:04→22:35)
[2019-10-11] MEDS: clonazePAM 0.5 MG TABLET PO PRN ×4 (08:24→22:33)
[2019-10-11] MEDS ORDERED: METHADONE HCL 10 MG TABLET (FOR DETOX USE ONLY) PO ONE (10:00)
[2019-10-11] MEDS: PRENATAL VITAMINS W/ FOLIC ACID TABLET (FP) PO SCH (10:27)
[2019-10-11] MEDS: METHOCARBAMOL 500 MG TABLET PO PRN (10:27)
[2019-10-11] MEDS: CARVEDILOL 25 MG TABLET (FP) PO SCH ×2 (10:27→22:34)
[2019-10-11] MEDS: LISINOPRIL PO SCH (10:28)
[2019-10-11] MEDS: NIFEDIPINE PO SCH (10:31)
[2019-10-11] MEDS: SPIRONOLACTONE 25 MG TABLET (FP) PO SCH (10:31)
[2019-10-11] MEDS: TOLNAFTATE 1% CREAM 15 GM TUBE TP SCH ×2 (10:31→23:00)
--- NOTE | 2019-10-11 10:33 | PN ---
BHS COWS - Scale Resting Pulse: 1= [place] 81-100 Sweatin= Chills/Flushing Restless Observation: 0= Sits Still Pupil Size: 1= Pupils >than Normal Bone or Joint Aches: 1= Mild Discomfort Runny Nose/ Eye Tearin= Nasal Congestion GI Upset > 30mins: 1= Stomach Cramp Tremor Observation of Outstretched Hands: 1= Tremor [place], Not Seen Yawning Observation: 1= 1-2x During Session Anxiety or Irritability: 1=Feels Anxious/Irritable Goose Flesh Skin: 0=Smooth Skin COWS Score: 9 BHS Progress Note (SOAP) Subjective: 49 years old male admitted on 10/09/19 for opiate withdrawal sx management treating with methadone detox regimen resting on bed comfortably prefers to stay in bed today limited conversation with staff Objective: 10/11/19 10:33 Vital Signs Temperature 98.4 F 10/11/19 09:17 Pulse Rate 83 10/11/19 09:17 Respiratory Rate 18 10/11/19 09:17 Blood Pressure 123/70 10/11/19 09:17 O2 Sat by Pulse Oximetry (%) Laboratory Last Values WBC 12.7 K/mm3 (4.0-10.0) H 10/10/19 08:10 RBC 4.21 M/mm3 (4.00-5.60) 10/10/19 08:10 Hgb 12.2 GM/dL (11.7-16.9) 10/10/19 08:10 Hct 37.1 % (35.4-49) D 10/10/19 08:10 MCV 88.1 fl (80-96) 10/10/19 08:10 MCH 29.1 pg (25.7-33.7) 10/10/19 08:10 MCHC 33.0 g/dl (32.0-35.9) 10/10/19 08:10 RDW 14.1 % (11.9-15.9) 10/10/19 08:10 Plt Count 293 K/MM3 (134-434) 10/10/19 08:10 MPV 8.9 fl (7.5-11.1) 10/10/19 08:10 Sodium 138 mmol/L (136-145) 10/10/19 08:10 Potassium 3.9 mmol/L (3.5-5.1) 10/10/19 08:10 Chloride 105 mmol/L (98-107) 10/10/19 08:10 Carbon Dioxide 26 mmol/L (21-32) 10/10/19 08:10 Anion Gap 8 MMOL/L (8-16) 10/10/19 08:10 BUN 19.6 mg/dL (7-18) H 10/10/19 08:10 Creatinine 0.7 mg/dL (0.55-1.3) 10/10/19 08:10 Est GFR (CKD-EPI)AfAm 130.25 10/10/19 08:10 Est GFR (CKD-EPI)NonAf 112.38 10/10/19 08:10 Random Glucose 106 mg/dL (74-106) 10/10/19 08:10 Calcium 9.1 mg/dL (8.5-10.1) 10/10/19 08:10 Total Bilirubin 0.7 mg/dL (0.2-1) 10/10/19 08:10 AST 13 U/L (15-37) L 10/10/19 08:10 ALT 29 U/L (13-61) 10/10/19 08:10 Alkaline Phosphatase 67 U/L (45-117) 10/10/19 08:10 Total Protein 6.6 g/dl (6.4-8.2) 10/10/19 08:10 Albumin 4.1 g/dl (3.4-5.0) 10/10/19 08:10 RPR Titer Nonreactive (NONREACTIVE) 10/10/19 08:10 HIV 1&2 Antibody Screen Negative 10/10/19 08:10 HIV P24 Antigen Negative 10/10/19 08:10 lab noted Assessment: 10/11/19 10:33 opiate withdrawal Plan: methadone regimen
[2019-10-11] MEDS: FAMOTIDINE 20 MG TABLET PO SCH ×2 (10:45→22:33)
[2019-10-11] MEDS: NIFEdipine E.R. 30 MG TABLET (FP) PO SCH (22:33)
[2019-10-11] MEDS: THIAMINE HCL 100 MG TABLET (FP) PO SCH (22:34)
[2019-10-12] MEDS: cloNIDine HCL 0.1 MG TABLET PO SCH ×4 (06:40→22:10)
[2019-10-12] MEDS: hydrALAZINE HCL 50 MG TABLET (FP) PO SCH ×3 (06:40→22:11)
[2019-10-12] MEDS: clonazePAM 0.5 MG TABLET PO PRN ×3 (06:42→22:11)
[2019-10-12] MEDS ORDERED: METHADONE HCL 5 MG TABLET (FOR DETOX USE ONLY) ONE (09:23)
[2019-10-12] MEDS ORDERED: METHADONE HCL 10 MG TABLET (FOR DETOX USE ONLY) ONE (09:23)
[2019-10-12] MEDS ORDERED: METHADONE (DETOX) 10 MG, METHADONE (DETOX) 5 MG PO ONE (10:00)
[2019-10-12] MEDS: PRENATAL VITAMINS W/ FOLIC ACID TABLET (FP) PO SCH (10:15)
[2019-10-12] MEDS: NIFEDIPINE PO SCH (10:15)
[2019-10-12] MEDS: SPIRONOLACTONE 25 MG TABLET (FP) PO SCH (10:15)
[2019-10-12] MEDS: METHOCARBAMOL 500 MG TABLET PO PRN (10:15)
[2019-10-12] MEDS: LISINOPRIL PO SCH (10:15)
[2019-10-12] MEDS: FAMOTIDINE 20 MG TABLET PO SCH ×2 (10:15→22:11)
[2019-10-12] MEDS: CARVEDILOL 25 MG TABLET (FP) PO SCH ×2 (10:15→22:12)
[2019-10-12] MEDS: TOLNAFTATE 1% CREAM 15 GM TUBE TP SCH ×2 (10:16→22:12)
--- NOTE | 2019-10-12 10:52 | PN ---
BHS COWS - Scale Resting Pulse: 1= [place] 81-100 Sweatin= Chills/Flushing Restless Observation: 0= Sits Still Pupil Size: 0= Normal to Room Light Bone or Joint Aches: 1= Mild Discomfort Runny Nose/ Eye Tearin= Nasal Congestion GI Upset > 30mins: 0= None Tremor Observation of Outstretched Hands: 1= Tremor [place], Not Seen Yawning Observation: 0= None Anxiety or Irritability: 1=Feels Anxious/Irritable Goose Flesh Skin: 0=Smooth Skin COWS Score: 6 BHS Progress Note (SOAP) Subjective: 49 years old male admitted on 10/09/19 for opiate withdrawal sx management treating with methadone detox regimen slept through the night ambulating on hallway social with peers in day room discuss the benefit of medication assisted treatment program and 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 pharmacy Objective: 10/12/19 10:54 Vital Signs Temperature 96.8 F L 10/12/19 09:18 Pulse Rate 81 10/12/19 09:18 Respiratory Rate 18 10/12/19 09:18 Blood Pressure 97/61 10/12/19 09:18 O2 Sat by Pulse Oximetry (%) Laboratory Last Values WBC 12.7 K/mm3 (4.0-10.0) H 10/10/19 08:10 RBC 4.21 M/mm3 (4.00-5.60) 10/10/19 08:10 Hgb 12.2 GM/dL (11.7-16.9) 10/10/19 08:10 Hct 37.1 % (35.4-49) D 10/10/19 08:10 MCV 88.1 fl (80-96) 10/10/19 08:10 MCH 29.1 pg (25.7-33.7) 10/10/19 08:10 MCHC 33.0 g/dl (32.0-35.9) 10/10/19 08:10 RDW 14.1 % (11.9-15.9) 10/10/19 08:10 Plt Count 293 K/MM3 (134-434) 10/10/19 08:10 MPV 8.9 fl (7.5-11.1) 10/10/19 08:10 Sodium 138 mmol/L (136-145) 10/10/19 08:10 Potassium 3.9 mmol/L (3.5-5.1) 10/10/19 08:10 Chloride 105 mmol/L (98-107) 10/10/19 08:10 Carbon Dioxide 26 mmol/L (21-32) 10/10/19 08:10 Anion Gap 8 MMOL/L (8-16) 10/10/19 08:10 BUN 19.6 mg/dL (7-18) H 10/10/19 08:10 Creatinine 0.7 mg/dL (0.55-1.3) 10/10/19 08:10 Est GFR (CKD-EPI)AfAm 130.25 10/10/19 08:10 Est GFR (CKD-EPI)NonAf 112.38 10/10/19 08:10 Random Glucose 106 mg/dL (74-106) 10/10/19 08:10 Calcium 9.1 mg/dL (8.5-10.1) 10/10/19 08:10 Total Bilirubin 0.7 mg/dL (0.2-1) 10/10/19 08:10 AST 13 U/L (15-37) L 10/10/19 08:10 ALT 29 U/L (13-61) 10/10/19 08:10 Alkaline Phosphatase 67 U/L (45-117) 10/10/19 08:10 Total Protein 6.6 g/dl (6.4-8.2) 10/10/19 08:10 Albumin 4.1 g/dl (3.4-5.0) 10/10/19 08:10 RPR Titer Nonreactive (NONREACTIVE) 10/10/19 08:10 HIV 1&2 Antibody Screen Negative 10/10/19 08:10 HIV P24 Antigen Negative 10/10/19 08:10 lab noted Assessment: 10/12/19 10:55 opiate withdrawal Plan: methadone regimen
[2019-10-12 11:09] LABS: PH,URINE 7.5 (5.0-8.0); URINE APPEARANCE CLEAR; URINE BILIRUBIN NEGATIVE (NEGATIVE); URINE COLOR YELLOW; URINE GLUCOSE (UA) NEGATIVE (NEGATIVE); URINE KETONE NEGATIVE (NEGATIVE); URINE LEUK ESTERASE NEGATIVE (NEGATIVE); URINE NITRITE NEGATIVE (NEGATIVE); URINE PROTEIN NEGATIVE (NEGATIVE); URINE UROBILINOGEN 0.2 mg/dL (0.2-1.0)
--- NOTE | 2019-10-12 17:34 | PN ---
[facility] Progress Note Note: Patient states that hernia is getting larger. States hernia has been present x 2 years. Wants to be referred for surgery after completing detox and rehab. Appetite good. Denies nausea or vomiting. Last BM 3-4 days ago. Assess: (R) inguinal hernia, soft reducible, non-tender w/ palpation. Vital Signs 10/12/19 10/12/19 10/12/19 13:07 14:37 17:28 Temperature 97.2 F L 98.9 F Pulse Rate 73 78 78 Respiratory 18 20 16 Rate Blood Pressure 121/75 116/68 95/56 L CBC WBC 12.7 K/mm3 (4.0-10.0) H 10/10/19 08:10 RBC 4.21 M/mm3 (4.00-5.60) 10/10/19 08:10 Hgb 12.2 GM/dL (11.7-16.9) 10/10/19 08:10 Hct 37.1 % (35.4-49) D 10/10/19 08:10 MCV 88.1 fl (80-96) 10/10/19 08:10 MCH 29.1 pg (25.7-33.7) 10/10/19 08:10 MCHC 33.0 g/dl (32.0-35.9) 10/10/19 08:10 RDW 14.1 % (11.9-15.9) 10/10/19 08:10 Plt Count 293 K/MM3 (134-434) 10/10/19 08:10 MPV 8.9 fl (7.5-11.1) 10/10/19 08:10 Plan: Encouraged to avoid squats, straining. Encouraged to wear own hernia support belt. Miralax x 2 doses. Start colace 100 mg Po TID. Encourage 2 pitchers water and increased fluids. Notify staff of any increased tenderness or pain. Encouraged to go to ED upon discharge for f/u evaluation and surgical referral.
[2019-10-12] MEDS: POLYETHYLENE GLYCOL 3350 119 GM BTL PO SCH ×2 (19:00→22:14)
[2019-10-12] MEDS: NIFEdipine E.R. 30 MG TABLET (FP) PO SCH (22:11)
[2019-10-12] MEDS: DOCUSATE SODIUM 100 MG CAPSULE (FP) PO SCH (22:11)
[2019-10-12] MEDS: THIAMINE HCL 100 MG TABLET (FP) PO SCH (22:12)
[2019-10-13] MEDS: hydrALAZINE HCL 50 MG TABLET (FP) PO SCH ×3 (05:33→22:43)
[2019-10-13] MEDS: cloNIDine HCL 0.1 MG TABLET PO SCH ×4 (05:33→22:44)
[2019-10-13] MEDS: DOCUSATE SODIUM 100 MG CAPSULE (FP) PO SCH ×3 (05:33→22:44)
[2019-10-13] MEDS ORDERED: METHADONE HCL 10 MG TABLET (FOR DETOX USE ONLY) PO ONE (10:00)
[2019-10-13] MEDS: CARVEDILOL 25 MG TABLET (FP) PO SCH ×2 (10:13→22:44)
[2019-10-13] MEDS: SPIRONOLACTONE 25 MG TABLET (FP) PO SCH (10:13)
[2019-10-13] MEDS: TOLNAFTATE 1% CREAM 15 GM TUBE TP SCH ×2 (10:14→22:45)
[2019-10-13] MEDS: NIFEDIPINE PO SCH (10:14)
[2019-10-13] MEDS: LISINOPRIL PO SCH (10:14)
[2019-10-13] MEDS: PRENATAL VITAMINS W/ FOLIC ACID TABLET (FP) PO SCH (10:14)
[2019-10-13] MEDS: FAMOTIDINE 20 MG TABLET PO SCH ×2 (10:16→22:44)
[2019-10-13] MEDS: METHOCARBAMOL 500 MG TABLET PO PRN (10:17)
--- NOTE | 2019-10-13 11:02 | PN ---
BHS COWS - Scale Resting Pulse: 0= [place] 80 or Below Sweatin= Chills/Flushing Restless Observation: 0= Sits Still Pupil Size: 0= Normal to Room Light Bone or Joint Aches: 1= Mild Discomfort Runny Nose/ Eye Tearin= None GI Upset > 30mins: 0= None Tremor Observation of Outstretched Hands: 1= Tremor [place], Not Seen Yawning Observation: 0= None Anxiety or Irritability: 1=Feels Anxious/Irritable Goose Flesh Skin: 0=Smooth Skin COWS Score: 4 BHS Progress Note (SOAP) Subjective: 49 years old male admitted on 10/09/19 for opiate withdrawal sx management treating with methadone detox regimen feeling better today slept through the night mild body ache denies pain of right inquinal hernia Objective: 10/13/19 11:01 Vital Signs Temperature 97.8 F 10/13/19 09:23 Pulse Rate 77 10/13/19 09:23 Respiratory Rate 18 10/13/19 09:23 Blood Pressure 97/61 10/13/19 09:23 O2 Sat by Pulse Oximetry (%) Laboratory Last Values WBC 12.7 K/mm3 (4.0-10.0) H 10/10/19 08:10 RBC 4.21 M/mm3 (4.00-5.60) 10/10/19 08:10 Hgb 12.2 GM/dL (11.7-16.9) 10/10/19 08:10 Hct 37.1 % (35.4-49) D 10/10/19 08:10 MCV 88.1 fl (80-96) 10/10/19 08:10 MCH 29.1 pg (25.7-33.7) 10/10/19 08:10 MCHC 33.0 g/dl (32.0-35.9) 10/10/19 08:10 RDW 14.1 % (11.9-15.9) 10/10/19 08:10 Plt Count 293 K/MM3 (134-434) 10/10/19 08:10 MPV 8.9 fl (7.5-11.1) 10/10/19 08:10 Sodium 138 mmol/L (136-145) 10/10/19 08:10 Potassium 3.9 mmol/L (3.5-5.1) 10/10/19 08:10 Chloride 105 mmol/L (98-107) 10/10/19 08:10 Carbon Dioxide 26 mmol/L (21-32) 10/10/19 08:10 Anion Gap 8 MMOL/L (8-16) 10/10/19 08:10 BUN 19.6 mg/dL (7-18) H 10/10/19 08:10 Creatinine 0.7 mg/dL (0.55-1.3) 10/10/19 08:10 Est GFR (CKD-EPI)AfAm 130.25 10/10/19 08:10 Est GFR (CKD-EPI)NonAf 112.38 10/10/19 08:10 Random Glucose 106 mg/dL (74-106) 10/10/19 08:10 Calcium 9.1 mg/dL (8.5-10.1) 10/10/19 08:10 Total Bilirubin 0.7 mg/dL (0.2-1) 10/10/19 08:10 AST 13 U/L (15-37) L 10/10/19 08:10 ALT 29 U/L (13-61) 10/10/19 08:10 Alkaline Phosphatase 67 U/L (45-117) 10/10/19 08:10 Total Protein 6.6 g/dl (6.4-8.2) 10/10/19 08:10 Albumin 4.1 g/dl (3.4-5.0) 10/10/19 08:10 Urine Color Yellow 10/12/19 08:15 Urine Appearance Clear 10/12/19 08:15 Urine pH 7.5 (5.0-8.0) 10/12/19 08:15 Ur Specific [place] 1.015 (1.010-1.035) 10/12/19 08:15 Urine Protein Negative (NEGATIVE) 10/12/19 08:15 Urine Glucose (UA) Negative (NEGATIVE) 10/12/19 08:15 Urine Ketones Negative (NEGATIVE) 10/12/19 08:15 Urine Blood Negative (NEGATIVE) 10/12/19 08:15 Urine Nitrite Negative (NEGATIVE) 10/12/19 08:15 Urine Bilirubin Negative (NEGATIVE) 10/12/19 08:15 Urine Urobilinogen 0.2 mg/dL (0.2-1.0) 10/12/19 08:15 Ur Leukocyte Esterase Negative (NEGATIVE) 10/12/19 08:15 RPR Titer Nonreactive (NONREACTIVE) 10/10/19 08:10 HIV 1&2 Antibody Screen Negative 10/10/19 08:10 HIV P24 Antigen Negative 10/10/19 08:10 lab noted Assessment: 10/13/19 11:01 opiate withdrawal Plan: methadone regimen
[2019-10-13] MEDS ORDERED: TRIMETHOBENZAMIDE HCL 200MG/2ML INJ IM ONE (21:05)
[2019-10-13] MEDS: NIFEdipine E.R. 30 MG TABLET (FP) PO SCH (22:44)
[2019-10-13] MEDS: THIAMINE HCL 100 MG TABLET (FP) PO SCH (23:55)
[2019-10-14] MEDS ORDERED: SODIUM PHOSPHATE/NA BIPHOS 133 ML ENEMA PR ONE (01:48)
--- NOTE | 2019-10-14 01:50 | PN ---
[facility] Progress Note Note: Patient vomited x 2 and is complaining of constipation. Patient was evaluated at bedside. He reports that he has not had a bowel movement in 5 days. He also states that he ate a left over sandwich Vital Signs Temperature 96.7 F L 10/13/19 21:05 Pulse Rate 90 10/14/19 01:09 Respiratory Rate 18 10/14/19 00:30 Blood Pressure 132/84 10/14/19 01:09 O2 Sat by Pulse Oximetry (%) Physical Exam General Appearance: Well developed, alert, uncomfortable and in apparent Distress HEENT: EOMI, LIANA, Normal Voice, Hearing Normal, Nasal Congestion. Neck: Supple. No lesion, noted. No clear JVD. No bruits heard bilaterally Respiratory/Chest: Lungs Clear, Normal Breath Sounds. No respiratory Distress, Crackles, Rales, Rhonchi, Stridor or Wheezing Cardiovascular: Regular Rhythm, Regular Rate, S1, S2. No murmur. PMI does not seem displaced Gastrointestinal/Abdominal:. Normal Bowel Sounds, mildly tender and distended. Guarding behavior noted. No palpable mass Extremity: Normal Capillary Refill Integumentary:Normal Color,warm to touch Neurologic: Alert, Motor Strength 5/5. No focal deficit. Fully Oriented, Normal Mood/Affect. Action: Fleet adult Rectal enema 133 ml per rectum Tigan 200mg IM ordered
[2019-10-14] MEDS ORDERED: METHADONE HCL 5 MG TABLET (FOR DETOX USE ONLY) PO ONE (06:00)
[2019-10-14] MEDS: cloNIDine HCL 0.1 MG TABLET PO SCH (06:34)
[2019-10-14] MEDS: hydrALAZINE HCL 50 MG TABLET (FP) PO SCH (06:35)
[2019-10-14] MEDS: DOCUSATE SODIUM 100 MG CAPSULE (FP) PO SCH (06:35)
[2019-10-14 09:15] VITALS: BP 125/75; PULSE 96; TEMP 97.3
[2019-10-14] MEDS: PRENATAL VITAMINS W/ FOLIC ACID TABLET (FP) PO SCH (09:38)
[2019-10-14] MEDS: SPIRONOLACTONE 25 MG TABLET (FP) PO SCH (09:38)
[2019-10-14] MEDS: CARVEDILOL 25 MG TABLET (FP) PO SCH (09:39)
[2019-10-14] MEDS: NIFEDIPINE PO SCH (09:39)
[2019-10-14] MEDS: LISINOPRIL PO SCH (09:39)
[2019-10-14] MEDS: FAMOTIDINE 20 MG TABLET PO SCH (09:42)
[2019-10-14] MEDS: TOLNAFTATE 1% CREAM 15 GM TUBE TP SCH (09:42)
--- NOTE | 2019-10-14 14:28 | DS ---
[facility] Detox Discharge Summary Admission Date: 10/09/19 Discharge Date: 10/14/19 - History Present History: Opioid Dependence Additional Comments: 49 years old male admitted on 10/09/19 for opiate withdrawal sx management treated with methadone detox regimen patient tolerated well alert oriented x 3 ate breakfast showered ambulating steady gait speech clearly coherently patient has long history of inquinal (right) hernia and heart problem treated by Dr Salas and Dr Coronado patient prefers to be seen by his primary care providers as well as hernia consultation by the primary care provider patient agrees returning to [facility] admission once medically evaluated by his primary care provider cardiac s1s2 regular ap96 mild tachy rhythm respiratory clear lung bilaterally on auscultation extremities full range of motion Pertinent Past History: patient will consider returning to [facility] after right inguinal hernia and aneurysm are safe for chemical rehab - Physical Exam Results Vital Signs: Vital Signs Temperature 97.3 F L 10/14/19 09:14 Pulse Rate 96 H 10/14/19 09:14 Respiratory Rate 18 10/14/19 09:14 Blood Pressure 125/75 10/14/19 09:14 O2 Sat by Pulse Oximetry (%) Pertinent Admission Physical Exam Findings: opiate withdrawal Laboratory Last Values WBC 12.7 K/mm3 (4.0-10.0) H 10/10/19 08:10 RBC 4.21 M/mm3 (4.00-5.60) 10/10/19 08:10 Hgb 12.2 GM/dL (11.7-16.9) 10/10/19 08:10 Hct 37.1 % (35.4-49) D 10/10/19 08:10 MCV 88.1 fl (80-96) 10/10/19 08:10 MCH 29.1 pg (25.7-33.7) 10/10/19 08:10 MCHC 33.0 g/dl (32.0-35.9) 10/10/19 08:10 RDW 14.1 % (11.9-15.9) 10/10/19 08:10 Plt Count 293 K/MM3 (134-434) 10/10/19 08:10 MPV 8.9 fl (7.5-11.1) 10/10/19 08:10 Sodium 138 mmol/L (136-145) 10/10/19 08:10 Potassium 3.9 mmol/L (3.5-5.1) 10/10/19 08:10 Chloride 105 mmol/L (98-107) 10/10/19 08:10 Carbon Dioxide 26 mmol/L (21-32) 10/10/19 08:10 Anion Gap 8 MMOL/L (8-16) 10/10/19 08:10 BUN 19.6 mg/dL (7-18) H 10/10/19 08:10 Creatinine 0.7 mg/dL (0.55-1.3) 10/10/19 08:10 Est GFR (CKD-EPI)AfAm 130.25 10/10/19 08:10 Est GFR (CKD-EPI)NonAf 112.38 10/10/19 08:10 Random Glucose 106 mg/dL (74-106) 10/10/19 08:10 Calcium 9.1 mg/dL (8.5-10.1) 10/10/19 08:10 Total Bilirubin 0.7 mg/dL (0.2-1) 10/10/19 08:10 AST 13 U/L (15-37) L 10/10/19 08:10 ALT 29 U/L (13-61) 10/10/19 08:10 Alkaline Phosphatase 67 U/L (45-117) 10/10/19 08:10 Total Protein 6.6 g/dl (6.4-8.2) 10/10/19 08:10 Albumin 4.1 g/dl (3.4-5.0) 10/10/19 08:10 Urine Color Yellow 10/12/19 08:15 Urine Appearance Clear 10/12/19 08:15 Urine pH 7.5 (5.0-8.0) 10/12/19 08:15 Ur Specific Crucible 1.015 (1.010-1.035) 10/12/19 08:15 Urine Protein Negative (NEGATIVE) 10/12/19 08:15 Urine Glucose (UA) Negative (NEGATIVE) 10/12/19 08:15 Urine Ketones Negative (NEGATIVE) 10/12/19 08:15 Urine Blood Negative (NEGATIVE) 10/12/19 08:15 Urine Nitrite Negative (NEGATIVE) 10/12/19 08:15 Urine Bilirubin Negative (NEGATIVE) 10/12/19 08:15 Urine Urobilinogen 0.2 mg/dL (0.2-1.0) 10/12/19 08:15 Ur Leukocyte Esterase Negative (NEGATIVE) 10/12/19 08:15 RPR Titer Nonreactive (NONREACTIVE) 10/10/19 08:10 HIV 1&2 Antibody Screen Negative 10/10/19 08:10 HIV P24 Antigen Negative 10/10/19 08:10 lab noted Vital Signs Temperature 97.3 F L 10/14/19 09:14 Pulse Rate 96 H 10/14/19 09:14 Respiratory Rate 18 10/14/19 09:14 Blood Pressure 125/75 10/14/19 09:14 O2 Sat by Pulse Oximetry (%) - Treatment Hospital Course: Detox Protocol Followed, Detoxed Safely, Responded well, Discharged Condition Good, Rehab Referral Accepted Patient has Accepted a Re[facility] Referral [facility] - Medication Discharge Medications: Ambulatory Orders Carvedilol 50 mg PO BID 03/07/15 Clonidine HCl 0.3 mg PO TID 03/07/15 Famotidine [Pepcid -] 20 mg PO DAILY 03/07/15 Hydralazine HCl 50 mg PO TID 03/07/15 Lisinopril [Prinivil -] 40 mg PO DAILY 03/07/15 Nifedipine [Nifedical Xl] 30 mg PO HS 03/07/15 Nifedipine [Nifedipine ER] 60 mg PO DAILY 09/28/17 Spironolactone 25 mg PO DAILY 09/28/17 Naloxone HCl [Narcan] 4 mg NS ASDIR PRN #1 spray 10/11/19 - Diagnosis (1) Hernia, inguinal, right Status: Chronic (2) Opioid dependence with withdrawal Status: Acute (3) Essential (primary) hypertension Status: Chronic (4) Hx of aortic aneurysm repair Status: Resolved (5) Substance induced mood disorder Status: Suspected - AMA Did Patient Leave Against Medical Advice: No COWS (PN) - Opiate Withdrawal Resting Pulse: 1= DE 81-100 Sweatin= No chills or Flushing Restless Observation: 0= Sits Still Pupil Size: 0= Normal to Room Light Bone or Joint Aches: 0= None Runny Nose/ Eye Tearin= None GI Upset > 30mins: 0= None Tremor Observation of Outstretched Hands: 0= None Yawning Observation: 0= None Anxiety or Irritability: 1=Feels Anxious/Irritable Goose Flesh Skin: 0=Smooth Skin COWS Score: 2
== END 2019-10-14 10:48 | disposition home or self-care (01) | DRG 773 ==
LOC: YASAS 16:31 → Y3N 22:36
PROVIDERS: ADMIT Allergy & Immunology; ATTEND Allergy & Immunology
PROC: HZ2ZZZZ Detoxification Services for Substance Abuse Treatment (ICD-10-PCS; principal; 2019-10-09)
DX: F11.23 Opioid dependence with withdrawal (principal); F12.20 Cannabis dependence, uncomplicated; F19.24 Other psychoactive substance dependence with psychoactive substance-induced mood disorder; I10 Essential (primary) hypertension; I25.2 Old myocardial infarction; K40.90 Unilateral inguinal hernia, without obstruction or gangrene, not specified as recurrent; K59.00 Constipation, unspecified; R01.1 Cardiac murmur, unspecified; B35.3 Tinea pedis; Z86.79 Personal history of other diseases of the circulatory system; Z87.891 Personal history of nicotine dependence; Z91.013 Allergy to seafood
CPT/HCPCS: 36415; 80053; 81003; 85027; 86593; 87389; 93005; 93010; J0735

== ENCOUNTER → 2019-12-02 | Day surgery (SDC) | payer OTHER ==
--- NOTE | 2019-12-03 16:00 | PATH ---
Cytology Non-Gynecological Report Patient Name: [facility]. Rec. #: [id number] /Age/Gender: 1970 (Age: 49) / M Account: [id number] Location: RADIOLOGY INTER Taken: 12/02/2019 Received: 12/02/2019 Reported: 12/03/2019 Physicians: Stef Cartagena M.D. Specimen(s) Received THYROID, LEFT, FINE NEEDLE ASPIRATION Clinical History Left lobe, 3.94 x 1.63 x 2.6 cm Final Diagnosis THYROID, LEFT, FINE NEEDLE ASPIRATION: SATISFACTORY FOR EVALUATION. BETHESDA CLASS II: BENIGN. CYTOLOGIC FINDINGS ARE CONSISTENT WITH A BENIGN FOLLICULAR NODULE. SMALL FOLLICULAR CELLS AND COLLOID PRESENT. Comment: Direct smears show few small follicular cells dispersed singly and colloid. Findings are best represented in the cell block material which shows a small aggregate of small follicular cells. Electronically Signed Shalonda Lynch M.D. Gross Description Received are eight direct smears, four of which are air-dried and Diff-Quik stained, and four of which are alcohol fixed and Pap stained. Also received is 20 ml of bloody formalin from which one cellblock is prepared.
== END | disposition home or self-care (01) ==
LOC: JRADIR 09:21
PROVIDERS: ATTEND Internal Medicine Geriatric Medicine
PROC: 0G9G3ZX Drainage of Left Thyroid Gland Lobe, Percutaneous Approach, Diagnostic (ICD-10-PCS; principal; 2019-12-02)
DX: E04.1 Nontoxic single thyroid nodule (principal)
CPT/HCPCS: 76942

== ENCOUNTER 2020-04-22 08:04 | Day surgery (SDC) | payer OTHER ==
[2020-04-21 15:15] VITALS: BMI 29.8
[2020-04-22 08:29] VITALS: BP 103/66; PULSE 68; TEMP 98
[2020-04-22] MEDS ORDERED: MIDAZOLAM HCL 2 MG/2 ML SINGLE DOSE VIAL ONE (08:38)
[2020-04-22] MEDS ORDERED: PROPOFOL 20 ML ONE (08:38)
[2020-04-22] MEDS ORDERED: KETAMINE HCL 200 MG/20 ML VIAL ONE (08:38)
[2020-04-22] MEDS ORDERED: ROCURONIUM BROMIDE 50 MG/5 ML SYRINGE ONE (08:38)
[2020-04-22] MEDS ORDERED: MAGNESIUM SULF 50% (8.12 MEQ/2 ML-1 GM VIAL) ONE (08:40)
[2020-04-22] MEDS ORDERED: LIDOCAINE HCL/PF 2% SDV 5ML VIAL ONE (08:40)
[2020-04-22 08:47] LABS: HEMATOCRIT 37.5 % (35.4-49); HEMOGLOBIN 12.5 GM/dL (11.7-16.9); MCHC 33.3 g/dl (32.0-35.9); MEAN PLT VOLUME 8.1 fl (7.5-11.1); PLATELET COUNT 312 K/MM3 (134-434); RBC 4.31 M/mm3 (4.00-5.60); WHITE BLOOD COUNT 7.7 K/mm3 (4.0-10.0)
[2020-04-22 08:53] LABS: INR 0.97 (0.83-1.09); PROTHROMBIN TIME (PATIENT) 11.4 SEC (9.7-13.0)
[2020-04-22 09:38] LABS: ALBUMIN 3.6 g/dl (3.4-5.0); BILIRUBIN,TOTAL 0.6 mg/dL (0.2-1); BLOOD UREA NITROGEN 14.7 mg/dL (7-18); CALCIUM 8.8 mg/dL (8.5-10.1); CREATININE 0.7 mg/dL (0.55-1.3); POTASSIUM 3.7 mmol/L (3.5-5.1)
[2020-04-22] MEDS ORDERED: BUPIVACAINE HCL 100 ML ONE (12:04)
== END 2020-04-22 12:47 | disposition home or self-care (01) ==
LOC: JASU-SURG 08:04
PROVIDERS: ATTEND Surgery
DX: Z53.8 Procedure and treatment not carried out for other reasons (principal)
CPT/HCPCS: 36415; 80053; 85027; 85610; 86850; 86900; 86901

== ENCOUNTER 2023-05-31 05:14 | Day surgery (SDC) | payer OTHER ==
[2023-05-20 12:04] VITALS: BMI 29.8
[2023-05-31] MEDS ORDERED: BUPIVACAINE HCL/PF 0.5% (5MG/ML) 10 ML VIAL ONE (07:24)
[2023-05-31] MEDS ORDERED: PROPOFOL 40 ML ONE (08:26)
[2023-05-31] MEDS ORDERED: SUCCINYLCHOLINE CHLORIDE 200 MG/10 ML SYRINGE ONE (08:27)
[2023-05-31] MEDS ORDERED: ROCURONIUM BROMIDE 50 MG/5 ML SYRINGE ONE (08:41)
[2023-05-31] MEDS ORDERED: ceFAZolin SODIUM 1 GM VIAL IVPB ONE (08:49)
[2023-05-31] MEDS ORDERED: KETOROLAC TROMETHAMINE 30 MG/1 ML VIAL ONE (08:59)
[2023-05-31] MEDS ORDERED: DEXAMETHASONE SOD PHOSPHATE 4 MG/1 ML VIAL ONE (08:59)
[2023-05-31] MEDS ORDERED: ONDANSETRON 4 MG/2 ML VIAL ONE ×2 (08:59→15:18)
[2023-05-31] MEDS ORDERED: ceFAZolin SODIUM 1 GM VIAL ONE ×2 (08:59)
[2023-05-31] MEDS ORDERED: BUPIVACAINE HCL/PF 0.5% (5 MG/ML) 30 ML VIAL IJ ONE ×2 (09:04)
[2023-05-31] MEDS ORDERED: GLYCOPYRROLATE 0.2 MG/1 ML VIAL ONE ×2 (10:39)
[2023-05-31] MEDS ORDERED: NEOSTIGMINE METHYLSULFATE 0.5 MG/1 ML - 10 ML MDV ONE (10:39)
[2023-05-31] MEDS ORDERED: oxyCODONE HCL 5 MG TABLET PO PRN (11:04)
[2023-05-31] MEDS ORDERED: ONDANSETRON 4 MG/2 ML VIAL IVPUSH PRN (11:04)
[2023-05-31] MEDS ORDERED: LACTATED RINGERS SOLUTION 1,000 ML IV SCH (11:15)
[2023-05-31 13:26] VITALS: RESP 18
[2023-05-31] MEDS ORDERED: oxyCODONE HCL 5 MG TABLET ONE (13:47)
[2023-05-31 15:39] VITALS: BP 136/80; PULSE 78; TEMP 97.6
== END 2023-05-31 15:39 | disposition home or self-care (01) ==
LOC: JASU-SURG 05:14
PROVIDERS: ATTEND Surgery
PROC: 8E0W4CZ Robotic Assisted Procedure of Trunk Region, Percutaneous Endoscopic Approach (ICD-10-PCS; 2023-05-31)
PROC: 0DQV0ZZ Repair Mesentery, Open Approach (ICD-10-PCS; principal; 2023-05-31 08:00)
PROC: 0YU54JZ Supplement Right Inguinal Region with Synthetic Substitute, Percutaneous Endoscopic Approach (ICD-10-PCS; 2023-05-31 08:00)
DX: K40.90 Unilateral inguinal hernia, without obstruction or gangrene, not specified as recurrent (principal); K42.0 Umbilical hernia with obstruction, without gangrene
CPT/HCPCS: 49592; 49650; S2900; 88302-TC; 94760; C1781

== ENCOUNTER 2023-10-11 03:54 | Day surgery (SDC) | payer OTHER ==
[2023-10-09 13:06] VITALS: BMI 29.8
[2023-10-11 07:26] LABS: INR 1.04 (0.83-1.09); PROTHROMBIN TIME (PATIENT) 12.1 SEC (9.7-13.0)
[2023-10-11] MEDS ORDERED: MIDAZOLAM HCL 2 MG/2 ML SINGLE DOSE VIAL ONE (12:21)
[2023-10-11] MEDS ORDERED: PROPOFOL 20 ML ONE ×2 (12:23)
[2023-10-11] MEDS ORDERED: LIDOCAINE 1%/EPI 1:100000 (20 ML MULTI DOSE VIAL) IJ ONE (12:58)
[2023-10-11] MEDS ORDERED: ONDANSETRON 4 MG/2 ML VIAL ONE (13:05)
[2023-10-11 15:27] VITALS: RESP 20; TEMP 97.8
[2023-10-11 15:40] VITALS: BP 130/85; PULSE 70
== END 2023-10-11 14:32 | disposition home or self-care (01) ==
LOC: JASU-SURG 03:54
PROVIDERS: ATTEND Surgery
PROC: 0JBC0ZX Excision of Pelvic Region Subcutaneous Tissue and Fascia, Open Approach, Diagnostic (ICD-10-PCS; 2023-10-11)
PROC: 0HBAXZX Excision of Inguinal Skin, External Approach, Diagnostic (ICD-10-PCS; principal; 2023-10-11 09:00)
DX: L72.3 Sebaceous cyst (principal)
CPT/HCPCS: 36415; 84132; 85610; 88304-TC; 88305-TC